=== PATIENT | female | born 1950 | race Caucasian/White ===

== ENCOUNTER 2020-07-09 07:16 | Day surgery (SDC) | payer MEDICARE, BC ==
[~2020-07-09 07:16] MED LIST: Bupivacaine 0.5% 50 ML MDV ONE; Lidocaine 1% with EPINEPHrine 1:100,000 50 ML MDV ONE
[2020-07-09] MEDS ORDERED: fentaNYL 100 MCG/2 ML SDV ONE (07:42)
[2020-07-09] MEDS ORDERED: Propofol 200 MG/20 ML SDV ONE ×2 (07:42→09:42)
[2020-07-09] MEDS ORDERED: Midazolam 1 MG/ML 2 ML SDV ONE (07:42)
[2020-07-09] MEDS ORDERED: Dextrose 5%-Lactated Ringers 1,000 ML IV SCH (08:00)
--- NOTE | 2020-07-19 14:11 | OR ---
DATE OF PROCEDURE: 07/09/2020 SURGEON: Juan Manuel Beasley MD PREOPERATIVE DIAGNOSIS: Widely metastatic cholangiocarcinoma. POSTOPERATIVE DIAGNOSIS: Widely metastatic cholangiocarcinoma. OPERATIVE PROCEDURE: Right posterior triangle cervical lymph node biopsy ([id number]). ANESTHESIA: Local plus IV sedation. INDICATIONS FOR PROCEDURE: This is a 69-year-old with a known intrahepatic cholangiocarcinoma with widespread metastasis. A lymph node biopsy was requested per Medical Oncology for confirmation of histologic status as well as a genetic evaluation of the tumor for potential targeted therapy. The patient has a quite well-defined posterior triangle cervical lymph node on the right side, and this will be the biopsy site. Potential risks including bleeding, infection, and injury to the spinal accessory nerve in that area were reviewed, and the patient wishes to proceed. DETAILS OF PROCEDURE: The patient was taken to the operating room and placed in a supine position. With head turned somewhat towards the left, the right neck area was then prepped and draped and anesthetized with 1% lidocaine, and a transverse incision was made over the palpable node. This was carried down through the various layers of the cervical fascia. Cervical lymph nodes were encountered. This was readily dissected free from the surrounding soft tissues with the lymphatic and vascular structures being either cauterized or divided and ligated with 4-0 Vicryl stitch. The spinal accessory nerve was noted to course adjacent to the lymph node and remained uninjured during the course of the dissection. Upon removal of the node, this was sent to Pathology. This will be set up for a Tempus study for genetic evaluation. The incision was then closed with layers of 4-0 Vicryl stitch deep and then a 4- 0 Vicryl subcuticular stitch, and also some surgical glue applied. The patient was taken to the recovery room in satisfactory condition. She will be following up with Medical Oncology next week. Juan Manuel Beasley MD /[id number]
== END 2020-07-09 14:00 | disposition home or self-care (01) ==
LOC: JP.SDS 07:16
PROVIDERS: ATTEND Surgery
DX: C22.1 Intrahepatic bile duct carcinoma (principal); C77.0 Secondary and unspecified malignant neoplasm of lymph nodes of head, face and neck; E11.9 Type 2 diabetes mellitus without complications; Z91.030 Bee allergy status; Z01.812 Encounter for preprocedural laboratory examination; Z20.822 Contact with and (suspected) exposure to COVID-19
CPT/HCPCS: 38510; 88305; 88341; 88342; J0690; J2250; J2704; J3010; J3490; J7060; J7121; U0002

== ENCOUNTER 2020-07-11 23:24 | Observation (INO) | payer MEDICARE, BC ==
--- NOTE | 2020-07-11 23:58 | EDM.PDOC ---
ED HPI GENERAL MEDICAL PROBLEM - General Chief Complaint: General Stated Complaint: FEELING ILL Time Seen by Provider: 07/11/20 23:53 Source of Information: Reports: Patient, Family History Limitations: Reports: No Limitations - History of Present Illness INITIAL COMMENTS - FREE TEXT/NARRATIVE: pt has a known promary Ca of the bile duct. This has recently become quite wide spread. She has had a pet scan which revealed multiple lesions. 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 She has a sig compression change in her lumbar vertebrae. They belive there is tumor there. She is not on chemo. She has felt nauseated all day. She has had a poor intake. She is a known diabetic. Onset: Gradual Duration: Day(s): Location: Reports: Generalized Associated Symptoms: Reports: Nausea/Vomiting, Shortness of Breath, Weakness Lower Back Pain Score (Numeric/FACES): 2 - Related Data Allergies Allergy/AdvReac Type Severity Reaction Status Date / Time bee venom protein (honey bee) Allergy Other Verified 07/11/20 23:44 Home Meds: Home Meds Calcipotriene [Dovonex 0.005% Crm] 1 applic TOP DAILY 07/09/20 [History] HYDROmorphone HCl [Hydromorphone HCl] 2 mg PO Q2H PRN 07/09/20 [History] Halobetasol Propionate 1 applic TOP DAILY 07/09/20 [History] Hydrocodone/Acetaminophen [Hydrocodon-Acetaminophen 5-325] 1 tab PO Q4H PRN 07/09/20 [History] LORazepam [Lorazepam] 1 mg PO BID 07/09/20 [History] Morphine [MS Contin] 15 mg PO Q12H PRN 07/09/20 [History] Omeprazole 20 mg PO DAILY PRN 07/09/20 [History] QUEtiapine Fumarate [Quetiapine Fumarate] 25 mg PO BEDTIME PRN 07/09/20 [His tory] Venlafaxine [Effexor] 25 mg PO BID 07/09/20 [History] atorvaSTATin [Lipitor] 20 mg PO DAILY 07/09/20 [History] glipiZIDE [Glipizide ER] 10 mg PO DAILY 07/09/20 [History] Past Medical History HEENT History: Reports: Other (See Below) Other HEENT History: cancerous lesion behind right eye, wears glasses Cardiovascular History: Reports: High Cholesterol Respiratory History: Reports: COPD Gastrointestinal History: Reports: GERD, Other (See Below) Other Gastrointestinal History: metastatic cholangiocarcinoma Genitourinary History: Reports: Other (See Below) Other Genitourinary History: enlarged left kidney - cyst 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: Musculoskeletal History: Reports: Fracture, Other (See Below) Other Musculoskeletal History: lumbar fracture Neurological History: Reports: Other (See Below) Other Neuro History: lumbar fracture Psychiatric History: Reports: Anxiety, Depression Endocrine/Metabolic History: Reports: Diabetes, Type II Oncologic (Cancer) History: Reports: Bone, Liver, Other (See Below) Other Oncologic History: metastatic cholangiocarcinoma Dermatologic History: Reports: Psoriasis - Past Surgical History HEENT Surgical History: Reports: Oral Surgery GI Surgical History: Reports: Cholecystectomy, Colonoscopy, Other (See Below) Other GI Surgeries/Procedures: part of liver removed for CA Oncologic Surgical History: Reports: Other (See Below) Other Oncologic Surgeries/Procedures: part of liver removed Social & Family History - Tobacco Use Tobacco Use Status *Q: Current Every Day Tobacco User Years of Tobacco use: 55 Packs/Tins Daily: 0.5 - Caffeine Use Caffeine Use: Reports: Coffee, Soda, Tea - Recreational Drug Use Recreational Drug Use: No ED ROS GENERAL - Review of Systems Review Of Systems: See Below Constitutional: Reports: Chills, Weakness, Decreased Appetite, Other (pt did not answer the phone when her son called her. ) HEENT: Reports: No Symptoms Respiratory: Reports: No Symptoms Cardiovascular: Reports: No Symptoms Endocrine: Reports: No Symptoms GI/Abdominal: Reports: Nausea, Other (pt did not vomit. ) : Reports: No Symptoms Musculoskeletal: Reports: No Symptoms, Other (pt has a known compression fracture in her lumbar spine which is causing her alot of pain. ) Skin: Reports: No Symptoms ED EXAM, GENERAL - Physical Exam Exam: See Below Free Text/Narrative:: pt arrived stating she was uncomfortable but seeming quite vague with the history. The son tried to call her and she did not answer. When he arrived she did seem confused and was not able to tell him what was going on. She was nauseated. She had not eaten today. Since mon she has been on pain meds which are new to her. Her son did count the meds and she had not taken too many. She had a recent pet scan which showed extensive metastatic disease from a bile duct ca. She has a known significant lumbar compression change. Exam Limited By: No Limitations General Appearance: Alert, Anxious, Moderate Distress, Other (pt seemed agitated and very vague/ She is loosing her vision in the rt eye. ) Ears: Normal TMs Nose: Normal Inspection Throat/Mouth: Normal Inspection Head: Atraumatic Neck: Normal Inspection Respiratory/Chest: No Respiratory Distress Cardiovascular: Regular Rate, Rhythm GI/Abdominal: Soft, Other ( diffusely tender. ) (Female) Exam: Deferred Rectal (Female) Exam: Deferred Back Exam: Other ( tender over the lumbar spine. ) Extremities: Normal Inspection, Other (pt does have generlized psaris) Neurological: Alert, Other (pt is very vague. ) Psychiatric: Anxious, Other ( agitated. ) Course - Vital Signs Last Recorded V/S: Last Vital Signs Temp 36.4 C 07/11/20 23:40 Pulse 93 07/12/20 02:59 Resp 16 07/12/20 02:59 BP 165/66 H 07/12/20 02:59 Pulse Ox 96 07/12/20 02:59 - Orders/Labs/Meds Orders: Active Orders 24 hr Category Date Time Status Patient Status Manage Transfer [TRANSFER] Routine ADT 07/12/20 03:34 Active Chest 1V Frontal [CR] Stat Exams 07/11/20 23:58 Taken CORONAVIRUS COVID-19, STAN Stat Lab 07/12/20 02:40 Ordered UA W/MICROSCOPIC [URIN] Urgent Lab 07/11/20 23:42 Ordered Iopamidol [Isovue-300 (61%)] Med 07/12/20 02:05 Active 100 ml IV . DIRECTED PRN Sodium Chloride 0.9% [Normal Saline] 1,000 ml Med 07/12/20 00:15 Active IV ASDIRECTED Sodium Chloride 0.9% [Normal Saline] 1,000 ml Med 07/12/20 03:00 Active IV ASDIRECTED Sodium Chloride 0.9% [Normal Saline] 1,000 ml Med 07/12/20 02:53 Active IV ONETIME Resuscitation Status Routine Resus Stat 07/12/20 03:37 Ordered Medication Orders Sodium Chloride (Normal Saline) 1,000 mls @ 500 mls/hr IV ASDIRECTED VICENTE Last Admin: 07/12/20 00:38 Dose: 500 mls/hr Documented by: [id number] Sodium Chloride (Normal Saline) 1,000 mls @ 500 mls/hr IV ASDIRECTED VICENTE Sodium Chloride (Normal Saline) 1,000 mls @ 500 mls/hr IV ONETIME ONE Stop: 07/12/20 04:52 Last Admin: 07/12/20 02:56 Dose: 500 mls/hr Documented by: [id number] Iopamidol (Isovue-300 (61%)) 100 ml IV . DIRECTED PRN PRN Reason: RADIOLOGY EXAM Stop: 07/13/20 02:06 Last Admin: 07/12/20 02:19 Dose: 100 ml Documented by: KIMBERLY Labs: Laboratory Tests 07/11/20 07/11/20 Range/Units 23:50 23:50 WBC 7.9 (4.5-11.0) K/uL RBC 3.56 (3.30-5.50) M/uL Hgb 10.0 L (12.0-15.0) g/dL Hct 32.3 L (36.0-48.0) % MCV 91 (80-98) fL MCH 28 (27-31) pg MCHC 31 L (32-36) % Plt Count 117 L (150-400) K/uL Neut % (Auto) 69 H (36-66) % Lymph % (Auto) 14 L (24-44) % [place] % (Auto) 12 H (2-6) % Eos % (Auto) 5 H (2-4) % Baso % (Auto) 0 (0-1) % Sodium 139 L (140-148) mmol/L Potassium 3.7 (3.6-5.2) mmol/L Chloride 104 (100-108) mmol/L Carbon Dioxide 25 (21-32) mmol/L Anion Gap 13.7 (5.0-14.0) mmol/L BUN 16 (7-18) mg/dL Creatinine 1.3 H (0.6-1.0) mg/dL Est Cr Clr Drug Dosing 36.23 mL/min Estimated GFR (MDRD) 40 L (>60) Glucose 168 H (74-106) mg/dL Calcium 9.7 (8.5-10.1) mg/dL Total Bilirubin 1.0 (0.2-1.0) mg/dL AST 32 (15-37) U/L ALT 17 (12-78) U/L Alkaline Phosphatase 133 H (46-116) U/L Total Protein 6.5 (6.4-8.2) g/dL Albumin 3.1 L (3.4-5.0) g/dL Globulin 3.4 (2.3-3.5) g/dL Albumin/Globulin Ratio 0.9 L (1.2-2.2) Meds: Medications Generic Name Dose Route Start Last Admin Trade Name Freq PRN Reason Stop Dose Admin Sodium Chloride 1,000 mls @ 500 mls/hr 07/12/20 00:15 07/12/20 00:38 Normal Saline IV 500 mls/hr ASDIRECTED VICENTE Administration Sodium Chloride 1,000 mls @ 500 mls/hr 07/12/20 03:00 Normal Saline IV ASDIRECTED VICENTE Sodium Chloride 1,000 mls @ 500 mls/hr 07/12/20 02:53 07/12/20 02:56 Normal Saline IV 07/12/20 04:52 500 mls/hr ONETIME ONE Administration Iopamidol 100 ml 07/12/20 02:05 07/12/20 02:19 Isovue-300 (61%) IV 07/13/20 02:06 100 ml . DIRECTED PRN Administration RADIOLOGY EXAM Discontinued Medications Generic Name Dose Route Start Last Admin Trade Name Freq PRN Reason Stop Dose Admin Hydromorphone HCl 0.5 mg 07/12/20 00:16 07/12/20 00:42 Dilaudid IVPUSH 07/12/20 00:17 0.5 mg ONETIME ONE Administration Ondansetron HCl 4 mg 07/12/20 00:15 07/12/20 00:41 Zofran IVPUSH 07/12/20 00:16 4 mg ONETIME ONE Administration Sodium Chloride 10 ml 07/12/20 01:53 07/12/20 02:19 Saline Flush FLUSH 07/12/20 01:54 10 ml ONETIME ONE Administration - Radiology Interpretation Free Text/Narrative:: pt was found to be anemic with a hg of 10. The son feels like she is clearer than she was at home. She did take her morphine today but she does not think she took any other pain meds. - Re-Assessments/Exams Free Text/Narrative Re-Assessment/Exam: 07/12/20 02:52 Pt seemed very vague. A cat scan with contrast was obtained. Pt was hydrated with 2 liters of fluid. 07/12/20 03:42 head scan did not show acute changes. Departure - Departure Time of Disposition: 03:42 Disposition: Admitted As Inpatient 65 Condition: Fair Clinical Impression: Medication adverse effect, Dehydration - Discharge Information Referrals: Vita Carlin DO [Primary Care Provider] - Forms: ED Department Discharge Care Plan Goals: admit to Dr cain Sepsis Event Note (ED) - Evaluation Sepsis Screening Result: No Definite Risk - Focused Exam Vital Signs: Vital Signs Temp Pulse Resp BP Pulse Ox 07/12/20 02:59 93 16 165/66 H 96 07/12/20 02:38 90 136/52 L 95 07/12/20 01:15 94 152/56 H 98 07/11/20 23:40 36.4 C 94 16 145/62 H 97 07/11/20 23:30 90 155/71 H 97 - My Orders Last 24 Hours: My Active Orders 07/11/20 23:42 UA W/MICROSCOPIC [URIN] Urgent 07/11/20 23:58 Chest 1V Frontal [CR] Stat 07/12/20 00:15 Sodium Chloride 0.9% [Normal Saline] 1,000 ml IV ASDIRECTED 07/12/20 02:05 Iopamidol [Isovue-300 (61%)] 100 ml IV . DIRECTED PRN 07/12/20 02:40 CORONAVIRUS COVID-19, STAN Stat 07/12/20 02:53 Sodium Chloride 0.9% [Normal Saline] 1,000 ml IV ONETIME 07/12/20 03:00 Sodium Chloride 0.9% [Normal Saline] 1,000 ml IV ASDIRECTED - Assessment/Plan Last 24 Hours: My Active Orders 07/11/20 23:42 UA W/MICROSCOPIC [URIN] Urgent 07/11/20 23:58 Chest 1V Frontal [CR] Stat 07/12/20 00:15 Sodium Chloride 0.9% [Normal Saline] 1,000 ml IV ASDIRECTED 07/12/20 02:05 Iopamidol [Isovue-300 (61%)] 100 ml IV . DIRECTED PRN 07/12/20 02:40 CORONAVIRUS COVID-19, STAN Stat 07/12/20 02:53 Sodium Chloride 0.9% [Normal Saline] 1,000 ml IV ONETIME 07/12/20 03:00 Sodium Chloride 0.9% [Normal Saline] 1,000 ml IV ASDIRECTED
[2020-07-12] MEDS ORDERED: Ondansetron 4 MG/2 ML SDV IVPUSH ONE (00:15)
[2020-07-12] MEDS ORDERED: Sodium Chloride 0.9% 1,000 ML IV SCH ×3 (00:15→04:53)
[2020-07-12] MEDS ORDERED: HYDROmorphone 0.5 MG/0.5 ML Syringe IVPUSH ONE (00:16)
[2020-07-12] MEDS ORDERED: Sodium Chloride 0.9% 10 ML Syringe FLUSH ONE (01:53)
[2020-07-12] MEDS ORDERED: Sodium Chloride 0.9% 100 ML IV SCH (02:00)
[2020-07-12] MEDS ORDERED: Iopamidol 755 Mg/ML 100 ML Bottle IV SCH (02:00)
[2020-07-12] MEDS ORDERED: Iopamidol 612 MG/ML 100 ML Bottle IV PRN (02:05)
[2020-07-12] MEDS ORDERED: Sodium Chloride 0.9% 1,000 ML IV ONE (02:53)
--- NOTE | 2020-07-12 03:15 | CRLCT ---
INDICATION: Confusion. History of cancer with metastatic disease. COMPARISON: None available TECHNIQUE: CT examination of the head was performed with 3 mm thick axial, sagittal, and coronal sections before and after the uneventful intravenous administration of 100 cc of Isovue-300. Images were obtained from the vertex of the skull through the skull base, and I examined the images with the brain and bone windows. Please note that all CT scans at this facility use dose modulation, iterative reconstruction, and/or weight-based dosing when appropriate to reduce radiation dose to as low as reasonably achievable. FINDINGS: The brain is normal in appearance for the patient`s age on today`s study, with no sign of mass lesion, mass effect, hemorrhage, or edema. The ventricles and sulci are normal in appearance for the patient`s age. There is no sign of pathologic enhancement. There is a high density ovoid mass of the muscle belly of the right lateral rectus muscle measuring 2.1 by 1.0 centimeters in cross-section and 1.2 centimeters in height, displacing the optic nerve medially. This does not extend into the orbital apex and does not resulting crowding of the orbital apex. There is mild enhancement. The findings are consistent with a metastatic lesion to the right lateral rectus muscle versus a primary malignancy of the muscle. The rest of the structures of the right orbit are normal in appearance, with no sign of any additional abnormalities of the extra-ocular muscles. The left orbit is normal in appearance. The visualized paranasal sinuses and mastoids are clear. The osseous structures are normal in their appearance with no sign of abnormality in the skull base or calvarium. Incidental note is made several sebaceous cysts in the left posterior parietal scalp as well as in the right occipital scalp. IMPRESSION: Enhancing, high-density ovoid mass of the muscle belly of the right lateral rectus muscle, metastatic lesion versus primary malignancy of the lateral rectus muscle. This does not extend into the orbital apex and does not resulting crowding of the orbital apex. Normal CT of the appearance of the brain with and without contrast, with no evidence of metastatic disease to the brain. Please note that all CT scans at this facility use dose modulation, iterative reconstruction, and/or weight-based dosing when appropriate to reduce radiation dose to as low as reasonably achievable. Dictated by Wojciech Cummings MD @ Jul 12 2020 3:03AM Signed by Dr. Wojciech Cummings @ Jul 12 2020 3:13AM
--- NOTE | 2020-07-12 03:41 | PCM.HP.2 ---
H&P History of Present Illness - General Date of Service: 07/12/20 Admit Problem/Dx: Admission Diagnosis/Problem Admission Diagnosis/Problem Confusion Source of Information: Patient, Family, Provider, RN Notes Reviewed History Limitations: Reports: No Limitations - History of Present Illness Initial Comments - Free Text/Narative: Ms. Galloway is a 69-year-old woman who was admitted to observation status through the emergency department for management of confusion, secondary to medication effect. She has a past history of cholangiocarcinoma and recently has been found to have evidence of significant metastatic disease. She has a metastatic lesion involving L1 with evidence of pathologic compression fracture. Because of the fracture she is experienced increased pain and has been started on narcotics and benzodiazepines for management. PET scan was performed appr oximately 9 days ago and she was found to have multiple metastatic lesions. She had been taking hydrocodone which was not sufficient to control her pain. Recently she has been taking long-acting morphine sulfate 15 mg twice daily as well as Dilaudid 2 mg every 2 hours as needed. She also has been taking lorazepam 0.5 mg twice daily. She readily admits over the last 9 days she has experienced increased confusion, this has been worse over the past few days. Family has counted her medications and suspect that she has been missing some doses of the narcotics, rather than taking too much. Yesterday her son tried to contact her and she was very forgetful and almost incoherent. She admits that she did not have anything to eat or drink during the day. While in the emergency department she has become more clear, but pain has increased also during this period of time. Lower Back Pain Score (Numeric/FACES): 2 - Related Data Allergies/Adverse Reactions: Allergies Allergy/AdvReac Type Severity Reaction Status Date / Time bee venom protein (honey bee) Allergy Other Verified 07/11/20 23:44 Home Medications: Home Meds Calcipotriene [Dovonex 0.005% Crm] 1 applic TOP DAILY 07/09/20 [History] HYDROmorphone HCl [Hydromorphone HCl] 2 mg PO Q2H PRN 07/09/20 [History] Halobetasol Propionate 1 applic TOP DAILY 07/09/20 [History] Hydrocodone/Acetaminophen [Hydrocodon-Acetaminophen 5-325] 1 tab PO Q4H PRN 07/09/20 [History] LORazepam [Lorazepam] 1 mg PO BID 07/09/20 [History] Morphine [MS Contin] 15 mg PO Q12H PRN 07/09/20 [History] Omeprazole 20 mg PO DAILY PRN 07/09/20 [History] QUEtiapine Fumarate [Quetiapine Fumarate] 25 mg PO BEDTIME PRN 07/09/20 [History] Venlafaxine [Effexor] 25 mg PO BID 07/09/20 [History] atorvaSTATin [Lipitor] 20 mg PO DAILY 07/09/20 [History] glipiZIDE [Glipizide ER] 10 mg PO DAILY 07/09/20 [History] Past Medical History HEENT History: Reports: Other (See Below) Other HEENT History: cancerous lesion behind right eye, wears glasses Cardiovascular History: Reports: High Cholesterol Respiratory History: Reports: COPD Gastrointestinal History: Reports: GERD, Other (See Below) Other Gastrointestinal History: metastatic cholangiocarcinoma Genitourinary History: Reports: Other (See Below) Other Genitourinary History: enlarged left kidney - cyst 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 History: Reports: Fracture, Other (See Below) Other Musculoskeletal History: lumbar fracture Neurological History: Reports: Other (See Below) Other Neuro History: lumbar fracture Psychiatric History: Reports: Anxiety, Depression Endocrine/Metabolic History: Reports: Diabetes, Type II Oncologic (Cancer) History: Reports: Bone, Liver, Other (See Below) Other Oncologic History: metastatic cholangiocarcinoma Dermatologic History: Reports: Psoriasis - Past Surgical History HEENT Surgical History: Reports: Oral Surgery GI Surgical History: Reports: Cholecystectomy, Colonoscopy, Other (See Below) Other GI Surgeries/Procedures: part of liver removed for CA Oncologic Surgical History: Reports: Other (See Below) Other Oncologic Surgeries/Procedures: part of liver removed Social & Family History - Tobacco Use Tobacco Use Status *Q: Current Every Day Tobacco User Years of Tobacco use: 55 Packs/Tins Daily: 0.5 - Caffeine Use Caffeine Use: Reports: Coffee, Soda, Tea - Recreational Drug Use Recreational Drug Use: No H&P Review of Systems - Review of Systems: Review Of Systems: See Below General: Reports: Malaise, Weakness, Fatigue, Decreased Appetite. Denies: Fever, Chills HEENT: Reports: No Symptoms Pulmonary: Reports: No Symptoms Cardiovascular: Reports: No Symptoms Gastrointestinal: Reports: No Symptoms Genitourinary: Reports: No Symptoms Musculoskeletal: Reports: Back Pain Skin: Reports: No Symptoms Psychiatric: Reports: No Symptoms Neurological: Reports: No Symptoms Hematologic/Lymphatic: Reports: No Symptoms Immunologic: Reports: No Symptoms Exam - Exam Exam: See Below - Vital Signs Vital Signs: Last Vital Signs Temp 97.6 F 07/11/20 23:40 Pulse 93 07/12/20 02:59 Resp 16 07/12/20 02:59 BP 165/66 H 07/12/20 02:59 Pulse Ox 96 07/12/20 02:59 Weight: 159 lb 9.835 oz - Exam Quality Assessment: DVT Prophylaxis General: Alert, Oriented, Cooperative, Moderate Distress HEENT: Conjunctiva Clear, Hearing Intact, Mucosa Moist & Dorr, Normal Nasal Septum, Posterior Pharynx Clear, Pupils Equal Neck: Supple, Trachea Midline, +2 Carotid Pulse wo Bruit Lungs: Clear to Auscultation, Normal Respiratory Effort Cardiovascular: Regular Rate, Regular Rhythm, Normal S1, Normal S2. No: Systolic Murmur, Diastolic Murmur GI/Abdominal Exam: Soft, Non-Tender, No Organomegaly, No Distention Extremities: Non-Tender, No Pedal Edema Skin: Warm, Dry, Other (Multiple palpable subcutaneous nodules) Neurological: Cranial Nerves Intact, Strength Equal Bilateral, Normal Speech, Normal Tone, Sensation Intact. No: Focal Deficit Neuro Extensive - Mental Status: Alert, Oriented x3, Normal Mood/Affect, Normal Cognition, Memory Intact - Patient Data Lab Results Last 24 hrs: Laboratory Results - last 24 hr 07/11/20 07/11/20 Range/Units 23:50 23:50 WBC 7.9 (4.5-11.0) K/uL RBC 3.56 (3.30-5.50) M/uL Hgb 10.0 L (12.0-15.0) g/dL Hct 32.3 L (36.0-48.0) % MCV 91 (80-98) fL MCH 28 (27-31) pg MCHC 31 L (32-36) % Plt Count 117 L (150-400) K/uL Neut % (Auto) 69 H (36-66) % Lymph % (Auto) 14 L (24-44) % [place] % (Auto) 12 H (2-6) % Eos % (Auto) 5 H (2-4) % Baso % (Auto) 0 (0-1) % Sodium 139 L (140-148) mmol/L Potassium 3.7 (3.6-5.2) mmol/L Chloride 104 (100-108) mmol/L Carbon Dioxide 25 (21-32) mmol/L Anion Gap 13.7 (5.0-14.0) mmol/L BUN 16 (7-18) mg/dL Creatinine 1.3 H (0.6-1.0) mg/dL Est Cr Clr Drug Dosing 36.23 mL/min Estimated GFR (MDRD) 40 L (>60) Glucose 168 H (74-106) mg/dL Calcium 9.7 (8.5-10.1) mg/dL Total Bilirubin 1.0 (0.2-1.0) mg/dL AST 32 (15-37) U/L ALT 17 (12-78) U/L Alkaline Phosphatase 133 H (46-116) U/L Total Protein 6.5 (6.4-8.2) g/dL Albumin 3.1 L (3.4-5.0) g/dL Globulin 3.4 (2.3-3.5) g/dL Albumin/Globulin Ratio 0.9 L (1.2-2.2) Result Diagrams: 07/11/20 23:50 07/11/20 23:50 Sepsis Event Note - Evaluation Sepsis Screening Result: No Definite Risk - Focused Exam Vital Signs: Vital Signs Temp Pulse Resp BP Pulse Ox 07/12/20 02:59 93 16 165/66 H 96 07/12/20 02:38 90 136/52 L 95 07/12/20 01:15 94 152/56 H 98 07/11/20 23:40 97.6 F 94 16 145/62 H 97 07/11/20 23:30 90 155/71 H 97 *Q Meaningful Use (ADM) - VTE Risk Assess *Q Each Risk Factor Represents 1 Point: Obesity ( BMI > 25 kg/m2) Total Score 1 Point Risk Factors: 1 Each Risk Factor Represents 2 Points: Age 60 - 74 Years, Malignancy (present or previous) Total Score 2 Point Risk Factors: 4 Each Risk Factor Represents 3 Points: None Total Score 3 Point Risk Factors: 0 Each Risk Factor Represents 5 Points: None Total Score 5 Point Risk Factors: 0 Venous Thromboembolism Risk Factor Score *Q: 5 Problem List Initiated/Reviewed/Updated: Yes Orders Last 24hrs: Active Orders 24 hr Category Date Time Status Patient Status Manage Transfer [TRANSFER] Routine ADT 07/12/20 03:34 Ordered Chest 1V Frontal [CR] Stat Exams 07/11/20 23:58 Taken CORONAVIRUS COVID-19, STAN Stat Lab 07/12/20 02:40 Ordered UA W/MICROSCOPIC [URIN] Urgent Lab 07/11/20 23:42 Ordered Iopamidol [Isovue-300 (61%)] Med 07/12/20 02:05 Active 100 ml IV . DIRECTED PRN Sodium Chloride 0.9% [Normal Saline] 1,000 ml Med 07/12/20 00:15 Active IV ASDIRECTED Sodium Chloride 0.9% [Normal Saline] 1,000 ml Med 07/12/20 03:00 Active IV ASDIRECTED Sodium Chloride 0.9% [Normal Saline] 1,000 ml Med 07/12/20 02:53 Active IV ONETIME Resuscitation Status Routine Resus Stat 07/12/20 03:37 Ordered Medication Orders Sodium Chloride (Normal Saline) 1,000 mls @ 500 mls/hr IV ASDIRECTED VICENTE Last Admin: 07/12/20 00:38 Dose: 500 mls/hr Documented by: EMMY Sodium Chloride (Normal Saline) 1,000 mls @ 500 mls/hr IV ASDIRECTED VICENTE Sodium Chloride (Normal Saline) 1,000 mls @ 500 mls/hr IV ONETIME ONE Stop: 07/12/20 04:52 Last Admin: 07/12/20 02:56 Dose: 500 mls/hr Documented by: EMMY Iopamidol (Isovue-300 (61%)) 100 ml IV . DIRECTED PRN PRN Reason: RADIOLOGY EXAM Stop: 07/13/20 02:06 Last Admin: 07/12/20 02:19 Dose: 100 ml Documented by: KIMBERLY Assessment/Plan Comment:: ASSESSMENT AND PLAN CONFUSION SECONDARY TO MEDICATION EFFECT-difficulty with confusion and started over the past week and a half and become progressively worse especially with addition of long-acting morphine sulfate. Because of confusion associated with medication she is not safe for discharged home. 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 -Hold morphine sulfate -Hold hydrocodone -Hold lorazepam BACK PAIN SECONDARY TO PATHOLOGIC COMPRESSION FRACTURE -Continue hydromorphone -Outpatient follow-up with oncology and radiation oncology METASTATIC CHOLANGIOCARCINOMA TYPE 2 DIABETES MELLITUS -Hold glipizide -Low-dose sliding scale Humalog -4 times daily glucometers MAINTENANCE ISSUES -DVT prophylaxis; Lovenox 40 mg subcu daily -GI prophylaxis; not indicated -Mao catheter; not indicated -Nutrition; regular diet -Nicotine dependence; not required CODE STATUS-FULL CODE ADMISSION STATUS-this patient will be admitted to observation status, expect no more than a one night hospital stay for evaluation and management of problems as outlined above. DISPOSITION-anticipate discharge to home after the hospital stay. PRIMARY CARE PROVIDER-Dr. Carlin - Mortality Measure Prognosis:: Good
[2020-07-12] MEDS ORDERED: Glucose Gel 15 GM in 37.5 GM Tube PO PRN (04:53)
[2020-07-12] MEDS ORDERED: Non-Formulary Medication 1 Each (Omeprazole [Omeprazole] 20 MG) PO PRN (04:53)
[2020-07-12] MEDS ORDERED: Acetaminophen 325 MG Tab PO PRN (04:53)
[2020-07-12] MEDS ORDERED: HYDROmorphone 2 MG Tab PO PRN (04:53)
[2020-07-12] MEDS ORDERED: Sodium Chloride 0.9% 10 ML Syringe FLUSH PRN (04:53)
[2020-07-12] MEDS ORDERED: 50% Dextrose in Water 50 ML Syringe IV PRN (04:53)
[2020-07-12] MEDS ORDERED: Ondansetron 4 MG/2 ML SDV IV PRN (04:53)
[2020-07-12] MEDS ORDERED: Polyethylene Glycol 3350 Powder 17 GM Packet PO PRN (04:53)
[2020-07-12] MEDS ORDERED: Pantoprazole 40 MG Tab.CR PO PRN (05:11)
[2020-07-12] MEDS ORDERED: Enoxaparin 40 MG/0.4 ML Syringe SUBCUT SCH (06:00)
[2020-07-12] MEDS: Insulin Lispro 100 Unit/ML 3 ML KwikPen SUBCUT SCH ×2 (08:26→12:11)
[2020-07-12] MEDS ORDERED: Venlafaxine 75 MG Tab PO SCH (09:00)
[2020-07-12] MEDS ORDERED: HALOBETASOL PROPIONATE TOP SCH (09:00)
[2020-07-12] MEDS ORDERED: CALCIPOTRIENE TOP SCH (09:00)
[2020-07-12] MEDS ORDERED: VENLAFAXINE 25 MG PO SCH ×2 (09:00→12:00)
[2020-07-12] MEDS ORDERED: Clobetasol 0.05% Crm 30 GM Tube TOP SCH (09:00)
[2020-07-12] MEDS ORDERED: atorvaSTATin 20 MG Tab PO SCH (09:00)
[2020-07-12] MEDS ORDERED: Morphine 15 MG Tab.ER PO PRN (09:43)
[2020-07-12] MEDS ORDERED: HALOBETASOL 0.05% TOP SCH (10:30)
--- NOTE | 2020-07-12 16:27 | PCM.DCSUM1 ---
Discharge Summary - Hospital Course Brief History: Ms. Lyon is a 69-year-old woman who was admitted through the emergency department to observation status because of confusion related to pain and anxiety medication. 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 Galloway is a 69-year-old woman who was admitted to observation status through the emergency department for management of confusion, secondary to medication effect. She has a past history of cholangiocarcinoma and recently has been found to have evidence of significant metastatic disease. She has a metastatic lesion involving L1 with evidence of pathologic compression fracture. Because of the fracture she is experienced increased pain and has been started on narcotics and benzodiazepines for management. PET scan was performed approximately 9 days ago and she was found to have multiple metastatic lesions. She had been taking hydrocodone which was not sufficient to control her pain. Recently she has been taking long-acting morphine sulfate 15 mg twice daily as well as Dilaudid 2 mg every 2 hours as needed. She also has been taking lorazepam 0.5 mg twice daily. She readily admits over the last 9 days she has experienced increased confusion, this has been worse over the past few days. Family has counted her medications and suspect that she has been missing some doses of the narcotics, rather than taking too much. Yesterday her son tried to contact her and she was very forgetful and almost incoherent. She admits that she did not have anything to eat or drink during the day. While in the emergency department she has become more clear, but pain has increased also during this period of time. On admission she was given IV fluids for hydration. Initially all of the medication was held except for the hydromorphone as needed for pain. Later on the day of admission she was started back on the long-acting morphine sulfate. With use of the morphine sulfate and hydromorphone she did not develop significant confusion. The hydrocodone will be discontinued and the lorazepam will be discontinued. Dosing interval of the hydromorphone will be increased to every 4 hours. Because of potential for some ongoing confusion she will be discharged home with her son and his family. Home care services will be arranged including home physical therapy and Occupational Therapy. Activity will be as tolerated and she will resume her usual diabetic diet. Follow-up appointment will be scheduled with her primary care provider within 1 week. - Patient Instructions Diet: Diabetic Diet Activity: As Tolerated Other/Special Instructions: Please arrange for home care services after discharge including home physical therapy and Occupational Therapy. Please schedule follow-up appointment with primary care provider within 1 week. - Discharge Plan *PRESCRIPTION DRUG MONITORING PROGRAM REVIEWED*: Not Applicable *COPY OF PRESCRIPTION DRUG MONITORING REPORT IN PATIENT DWAYNE: Not Applicable Home Medications: Home Meds Calcipotriene [Dovonex 0.005% Crm] 1 applic TOP DAILY 07/09/20 [History] Halobetasol Propionate 1 applic TOP DAILY 07/09/20 [History] Morphine [MS Contin] 15 mg PO Q12H PRN 07/09/20 [History] Omeprazole 20 mg PO DAILY PRN 07/09/20 [History] QUEtiapine Fumarate [Quetiapine Fumarate] 25 mg PO BEDTIME PRN 07/09/20 [History] Venlafaxine [Effexor] 25 mg PO BID 07/09/20 [History] atorvaSTATin [Lipitor] 20 mg PO DAILY 07/09/20 [History] glipiZIDE [Glipizide ER] 10 mg PO DAILY 07/09/20 [History] HYDROmorphone HCl [Hydromorphone HCl] 2 mg PO Q4H PRN #0 07/12/20 [Rx] Referrals: Vita Carlin DO [Primary Care Provider] - - Discharge Summary/Plan Comment DC Time >30 min.: No - Patient Data Vitals - Most Recent: Last Vital Signs Temp 96.7 F L 07/12/20 14:56 Pulse 65 07/12/20 14:56 Resp 16 07/12/20 14:56 BP 115/51 L 07/12/20 14:56 Pulse Ox 91 L 07/12/20 14:56 Weight - Most Recent: 165 lb I&O - Last 24 hours: Intake & Output 07/12/20 07/12/20 07/12/20 06:59 14:59 22:59 Intake Total 150 Balance 150 Lab Results - Last 24 hrs: Laboratory Results - last 24 hr 07/11/20 07/11/20 07/12/20 Range/Units 23:50 23:50 04:12 WBC 7.9 (4.5-11.0) K/uL RBC 3.56 (3.30-5.50) M/uL Hgb 10.0 L (12.0-15.0) g/dL Hct 32.3 L (36.0-48.0) % MCV 91 (80-98) fL MCH 28 (27-31) pg MCHC 31 L (32-36) % Plt Count 117 L (150-400) K/uL Neut % (Auto) 69 H (36-66) % Lymph % (Auto) 14 L (24-44) % [place] % (Auto) 12 H (2-6) % Eos % (Auto) 5 H (2-4) % Baso % (Auto) 0 (0-1) % Sodium 139 L (140-148) mmol/L Potassium 3.7 (3.6-5.2) mmol/L Chloride 104 (100-108) mmol/L Carbon Dioxide 25 (21-32) mmol/L Anion Gap 13.7 (5.0-14.0) mmol/L BUN 16 (7-18) mg/dL Creatinine 1.3 H (0.6-1.0) mg/dL Est Cr Clr Drug Dosing 36.23 mL/min Estimated GFR (MDRD) 40 L (>60) Glucose 168 H (74-106) mg/dL POC Glucose (74-106) MG/DL Calcium 9.7 (8.5-10.1) mg/dL Total Bilirubin 1.0 (0.2-1.0) mg/dL AST 32 (15-37) U/L ALT 17 (12-78) U/L Alkaline Phosphatase 133 H (46-116) U/L Total Protein 6.5 (6.4-8.2) g/dL Albumin 3.1 L (3.4-5.0) g/dL Globulin 3.4 (2.3-3.5) g/dL Albumin/Globulin Ratio 0.9 L (1.2-2.2) Urine Color (YELLOW) Urine Appearance (CLEAR) Urine pH (5.0-8.0) Ur Specific [place] (1.008-1.030) Urine Protein (NEGATIVE) mg/dL Urine Glucose (UA) (NEGATIVE) mg/dL Urine Ketones (NEGATIVE) mg/dL Urine Occult Blood (NEGATIVE) Urine Nitrite (NEGATIVE) Urine Bilirubin (NEGATIVE) Urine Urobilinogen (0.2-1.0) EU/dL Ur Leukocyte Esterase (NEGATIVE) Urine RBC (0-5) Urine WBC (0-5) Ur Epithelial Cells Amorphous Sediment Urine Bacteria Urine Mucus SARS-CoV-2 RNA (STAN) Negative (NEGATIVE) 07/12/20 07/12/20 07/12/20 Range/Units 04:54 07:19 11:39 WBC (4.5-11.0) K/uL RBC (3.30-5.50) M/uL Hgb (12.0-15.0) g/dL Hct (36.0-48.0) % MCV (80-98) fL MCH (27-31) pg MCHC (32-36) % Plt Count (150-400) K/uL Neut % (Auto) (36-66) % Lymph % (Auto) (24-44) % [place] % (Auto) (2-6) % Eos % (Auto) (2-4) % Baso % (Auto) (0-1) % Sodium (140-148) mmol/L Potassium (3.6-5.2) mmol/L Chloride (100-108) mmol/L Carbon Dioxide (21-32) mmol/L Anion Gap (5.0-14.0) mmol/L BUN (7-18) mg/dL Creatinine (0.6-1.0) mg/dL Est Cr Clr Drug Dosing mL/min Estimated GFR (MDRD) (>60) Glucose (74-106) mg/dL POC Glucose 161 H 208 H (74-106) MG/DL Calcium (8.5-10.1) mg/dL Total Bilirubin (0.2-1.0) mg/dL AST (15-37) U/L ALT (12-78) U/L Alkaline Phosphatase (46-116) U/L Total Protein (6.4-8.2) g/dL Albumin (3.4-5.0) g/dL Globulin (2.3-3.5) g/dL Albumin/Globulin Ratio (1.2-2.2) Urine Color Yellow (YELLOW) Urine Appearance Clear (CLEAR) Urine pH 5.0 (5.0-8.0) Ur Specific [place] 1.010 (1.008-1.030) Urine Protein Negative (NEGATIVE) mg/dL Urine Glucose (UA) Negative (NEGATIVE) mg/dL Urine Ketones Negative (NEGATIVE) mg/dL Urine Occult Blood Negative (NEGATIVE) Urine Nitrite Negative (NEGATIVE) Urine Bilirubin Negative (NEGATIVE) Urine Urobilinogen 0.2 (0.2-1.0) EU/dL Ur Leukocyte Esterase Negative (NEGATIVE) Urine RBC 0-5 (0-5) Urine WBC 0-5 (0-5) Ur Epithelial Cells Rare Amorphous Sediment Rare Urine Bacteria Not seen Urine Mucus Not seen SARS-CoV-2 RNA (STAN) (NEGATIVE) Med Orders - Current: Current Medications Acetaminophen (Tylenol) 650 mg PO Q4H PRN PRN Reason: Pain (Mild 1-3)/fever Atorvastatin Calcium (Lipitor) 20 mg PO DAILY [facility] Last Admin: 07/12/20 12:04 Dose: 20 mg Documented by: Dextrose (Glutose 15) 15 gm PO ONETIME PRN PRN Reason: Hypoglycemia Dextrose/Water (Dextrose 50% In Water) 50 ml IV ONETIME PRN PRN Reason: Hypoglycemia Enoxaparin Sodium (Lovenox) 40 mg SUBCUT DAILY@0600 [facility] Last Admin: 07/12/20 06:33 Dose: 40 mg Documented by: Heparin Sodium (Porcine) (Heparin Lock Flush 100 Units/Ml) 500 units FLUSH ASDIRECTED PRN PRN Reason: IV Use Last Admin: 07/12/20 11:48 Dose: 500 units Documented by: Hydromorphone HCl (Dilaudid) 2 mg PO Q2H PRN PRN Reason: Pain Last Admin: 07/12/20 09:14 Dose: 2 mg Documented by: Insulin Human Lispro (Humalog) 0 unit SUBCUT QIDACANDBED [facility]; Protocol Last Admin: 07/12/20 12:11 Dose: 2 units Documented by: Morphine Sulfate (Ms Contin) 15 mg PO Q12H PRN PRN Reason: Pain Last Admin: 07/12/20 11:56 Dose: 15 mg Documented by: Calcipotriene [ Dovonex 0.005% Crm] Ptom 0 applic TOP DAILY [facility] Last Admin: 07/12/20 12:07 Dose: Not Given Documented by: Halobetasol 0.05% (Cream Ptom) 0 applic TOP DAILY [facility] Last Admin: 07/12/20 12:02 Dose: Not Given Documented by: Ondansetron HCl (Zofran) 4 mg IV Q4H PRN PRN Reason: Nausea/Vomiting Pantoprazole Sodium (Protonix) 40 mg PO ACBREAKFAST PRN PRN Reason: acid reflux Venlafaxine 25mg (Ptom) 0 each PO BID [facility] Stop: 07/18/20 21:01 Last Admin: 07/12/20 12:04 Dose: 1 each Documented by: Venlafaxine 25mg (Ptom) 0 each PO BID [facility] Stop: 07/25/20 21:01 Venlafaxine 25mg (Ptom) 0 each PO BID [facility] Polyethylene Glycol (Miralax) 17 gm PO DAILY PRN PRN Reason: Constipation Sodium Chloride (Saline Flush) 10 ml FLUSH ASDIRECTED PRN PRN Reason: Keep Vein Open Discontinued Medications Heparin Sodium (Porcine) (Heparin Lock Flush 100 Units/Ml) Confirm Administered Dose 500 units .ROUTE .STK-MED ONE Stop: 07/12/20 04:44 Last Admin: 07/12/20 05:24 Dose: Not Given Documented by: Hydromorphone HCl (Dilaudid) 0.5 mg IVPUSH ONETIME ONE Stop: 07/12/20 00:17 Last Admin: 07/12/20 00:42 Dose: 0.5 mg Documented by: Sodium Chloride (Normal Saline) 1,000 mls @ 500 mls/hr IV ASDIRECTED [facility] Last Admin: 07/12/20 00:38 Dose: 500 mls/hr Documented by: Sodium Chloride (Normal Saline) 1,000 mls @ 500 mls/hr IV ASDIRECTED VICENTE Sodium Chloride (Normal Saline) 1,000 mls @ 500 mls/hr IV ONETIME ONE Stop: 07/12/20 04:52 Last Admin: 07/12/20 02:56 Dose: 500 mls/hr Documented by: Sodium Chloride (Normal Saline) 1,000 mls @ 125 mls/hr IV ASDIRECTED [facility] Stop: 07/12/20 12:54 Last Admin: 07/12/20 08:25 Dose: 125 mls/hr Documented by: Iopamidol (Isovue-300 (61%)) 100 ml IV . DIRECTED PRN PRN Reason: RADIOLOGY EXAM Stop: 07/13/20 02:06 Last Admin: 07/12/20 02:19 Dose: 100 ml Documented by: Ondansetron HCl (Zofran) 4 mg IVPUSH ONETIME ONE Stop: 07/12/20 00:16 Last Admin: 07/12/20 00:41 Dose: 4 mg Documented by: Sodium Chloride (Saline Flush) 10 ml FLUSH ONETIME ONE Stop: 07/12/20 01:54 Last Admin: 07/12/20 02:19 Dose: 10 ml Documented by: - Exam Quality Assessment: Reports: DVT Prophylaxis General: Reports: Alert, Oriented, Cooperative, Mild Distress Lungs: Reports: Clear to Auscultation, Normal Respiratory Effort Cardiovascular: Reports: Regular Rate, Regular Rhythm, No Murmurs GI/Abdominal Exam: Soft, Non-Tender, No Organomegaly, No Distention Back Exam: Reports: Vertebral Tenderness
--- NOTE | 2020-07-13 09:37 | CR ---
CHEST: Portable 07/12/2020 at 1:04 AM CLINICAL HISTORY:SOB COMPARISON:CT March 2020 FINDINGS: The heart size, pulmonary vascularity and hilar structures are normal. No infiltrate effusion or pneumothorax is seen. There are atherosclerotic changes in the aorta. [id number] catheter appears in good position previous right upper quadrant surgery IMPRESSION: No acute cardiopulmonary process.
[2020-07-19] MEDS ORDERED: VENLAFAXINE 25 MG PO SCH (09:00)
[2020-07-26] MEDS ORDERED: VENLAFAXINE 25 MG PO SCH (09:00)
== END 2020-07-12 17:45 | disposition home health service (06) ==
LOC: JP.ED 23:24 → JP.MS 07-12 03:34
PROVIDERS: ADMIT Hospitalist; ATTEND Hospitalist
DX: R41.0 Disorientation, unspecified (principal); F41.9 Anxiety disorder, unspecified; M48.56XA Collapsed vertebra, not elsewhere classified, lumbar region, initial encounter for fracture; C24.0 Malignant neoplasm of extrahepatic bile duct; C78.7 Secondary malignant neoplasm of liver and intrahepatic bile duct; E86.0 Dehydration; E11.9 Type 2 diabetes mellitus without complications; E78.00 Pure hypercholesterolemia, unspecified; F32.9 Major depressive disorder, single episode, unspecified; F17.210 Nicotine dependence, cigarettes, uncomplicated; Z20.822 Contact with and (suspected) exposure to COVID-19; Z90.49 Acquired absence of other specified parts of digestive tract; Z79.899 Other long term (current) drug therapy; Z91.030 Bee allergy status; Z79.84 Long term (current) use of oral hypoglycemic drugs; K21.9 Gastro-esophageal reflux disease without esophagitis
CPT/HCPCS: 36415; 70470; 71045; 71045-26; 80053; 81001; 82962; 85025; A9270-GY; J1170; J1642; J1650; J1815; J2405; J7030; Q9967; U0002